=== PATIENT | male | born 1970 | race Caucasian/White ===

== ENCOUNTER → 2016-06-04 | Emergency (ER) | payer OTHER ==
[~2016-06-04] VITALS: Ht 182.9 cm; Wt 95.5 kg
[~2016-06-04] MED LIST: ACETAMINOPHEN 325 MG TAB PO ONE; BACTDS PO; CEPH500C PO; IBUP-1542 PO; KETOROLAC 30 MG INJ IV STA; VANCOMYCIN 1 GM (PMX) 250 ML IVPB SCH
[2016-06-04 19:44] VITALS: Ht 182.9 cm; Wt 95.5 kg
[2016-06-04 21:02] LABS: ADD SCAN DIFF NO
[2016-06-04 21:07] LABS: BASOPHILS % 0.6 % (0.0-2.0); EOSINOPHILS # 0.1 10^3/ul (0.0-0.5); HEMATOCRIT 37.9 % (42.0-52.0); HEMOGLOBIN 13.2 g/dl (14.0-18.0); LYMPHOCYTES # 1.6 10^3/ul (0.8-2.9); LYMPHOCYTES % 22.4 % (15.0-51.0); MEAN CORPUSCULAR HEMOGLOBIN 30.7 pg (29.0-33.0); MEAN CORPUSCULAR HGB CONC 34.8 g/dl (32.0-37.0); MEAN CORPUSCULAR VOLUME 88.1 fl (82.0-101.0); MEAN PLATELET VOLUME 9.8 fl (7.4-10.4); MONOCYTE # 0.4 10^3/ul (0.3-0.9); NEUTROPHIL # 4.7 10^3/ul (1.6-7.5); PLATELET COUNT 216 10^3/UL (140-415); RED CELL DISTRIBUTION WIDTH 11.7 % (11.5-14.5)
[2016-06-04 21:15] LABS: POTASSIUM 3.8 mmol/L (3.5-5.1)
[2016-06-04 21:16] LABS: CREATININE 0.96 mg/dl (0.61-1.24)
[2016-06-04 21:17] LABS: ALBUMIN/GLOBULIN RATIO 1.11; BILIRUBIN,INDIRECT 0.1 mg/dl (0-1.1); BILIRUBIN,TOTAL 0.1 mg/dl (0.2-1.3); CALCIUM 9.2 mg/dl (8.4-10.2); TOTAL PROTEIN 7.6 g/dl (6.1-8.1)
[2016-06-04 21:31] LABS: C-REACTIVE PROTEIN 5.9 mg/dl (0.0-0.9)
--- NOTE | 2016-06-04 22:07 | ERA ---
ER Documentation Chief Complaint Date/Time DATE: 06/04/16 TIME: 22:04 Chief Complaint left leg/knee pain/swelling x 4 days. denies injury (ROSS COATS MD) HPI This 2-year-old male complains of left knee redness for last 4 days. He does work on his knees. He may have had tactile fevers but no measured temperature. Denies vomiting, shortness breath chest pain, weakness or restricted range of motion. (ROSS COATS MD) ROS All systems reviewed and are negative except as per history of present illness. (ROSS COATS MD) Medications Home Meds Active Scripts Cephalexin* (Cephalexin*) 500 Mg Capsule, 500 MG PO Q6 for 10 Days, #40 CAP Prov:ROSS COATS MD 06/04/16 Sulfamethoxazole-Trimethoprim* (Bactrim* DS) 800-160 Mg Tab, 1 TAB PO BID for 10 Days, #20 TAB Prov:ROSS COATS MD 06/04/16 Ibuprofen* (Motrin*) 600 Mg Tab, 600 MG PO Q6, #30 TAB Prov:ROSS COATS MD 06/04/16 Allergies Allergies: Coded Allergies: No Known Drug Allergies (Verified Allergy, Unknown, 06/04/16) PMhx/Soc Medical and Surgical Hx: pt denies Medical Hx, pt denies Surgical Hx History of Surgery: No Anesthesia Reaction: No Hx Neurological Disorder: No Hx Respiratory Disorders: No Hx Cardiac Disorders: No Hx Psychiatric Problems: No Hx Miscellaneous Medical Probl: No Hx Alcohol Use: No Hx Substance Use: No Hx Tobacco Use: No Smoking Status: Never smoker (ROSS COATS MD) Physical Exam Vitals Vital Signs Date Time Temp Pulse Resp B/P Pulse Ox O2 Delivery O2 Flow Rate FiO2 06/04/16 19:44 97 20 139/67 97 (ADRI REMY NP) Physical Exam Const: [] Alert, [id number]. Head: Atraumatic Eyes: Normal Conjunctiva ENT: Normal External Ears, Nose and Mouth. Neck: Full range of motion..~ No meningismus. Resp: Clear to auscultation bilaterally Cardio: Regular rate and rhythm, no murmurs Abd: Soft, non tender, non distended. Normal bowel sounds Skin: No petechiae or rashes Back: No midline or flank tenderness Ext: No cyanosis, or edema. There is some tenderness and slight fluctuance in the left prepatellar bursa. There is some surrounding redness and warmth. There is no appreciable effusion or restricted range of motion deformities. There is no calf swelling or Homans sign. Neur: Awake and alert Psych: Normal Mood and Affect (ROSS COATS MD) Result Diagram: 06/04/16204906/04/162049 Results 24 hrs Laboratory Tests Test 06/04/16 20:50 Alanine Aminotransferase (ALT/SGPT) 71IU/L Albumin 4.0g/dl Albumin/Globulin Ratio 1.11 Alkaline Phosphatase 100IU/L Anion Gap 16 Aspartate Amino Transf (AST/SGOT) 57IU/L Basophils # 0.010^3/ul Basophils % 0.6% Blood Urea Nitrogen 13mg/dl C-Reactive Protein 5.9mg/dl Calcium Level 9.2mg/dl Carbon Dioxide Level 28mmol/L Chloride Level 102mmol/L Creatinine 0.96mg/dl Direct Bilirubin 0.00mg/dl Eosinophils # 0.110^3/ul Eosinophils % 2.0% Erythrocyte Sedimentation Rate 80mm/Hr Globulin 3.60g/dl Glucose Level 208mg/dl Hematocrit 37.9% Hemoglobin 13.2g/dl Indirect Bilirubin 0.1mg/dl Lipase 98U/L Lymphocytes # 1.610^3/ul Lymphocytes % 22.4% Mean Corpuscular Hemoglobin 30.7pg Mean Corpuscular Hemoglobin Concent 34.8g/dl Mean Corpuscular Volume 88.1fl Mean Platelet Volume 9.8fl Monocytes # 0.410^3/ul Monocytes % 6.0% Neutrophils # 4.710^3/ul Neutrophils % 68.0% Nucleated Red Blood Cells # 0.010^3/ul Nucleated Red Blood Cells % 0.0/100WBC Platelet Count 49675^3/UL Potassium Level 3.8mmol/L Red Blood Count 4.3010^6/ul Red Cell Distribution Width 11.7% Sodium Level 142mmol/L Total Bilirubin 0.1mg/dl Total Protein 7.6g/dl Uric Acid 5.6mg/dl White Blood Count 7.010^3/ul Current Medications Medications (Trade) Dose Ordered Sig/Kyaw Route PRN Reason Start Time Stop Time Status Last Admin Dose Admin Ketorolac Tromethamine 30 mg 30 mg ONCE STAT IV 06/04/16 20:20 06/04/16 20:23 DC 06/04/16 21:04 Vancomycin HCl (Vancocin) 250 ml @ 125 mls/hr ONCE IVPB 06/04/16 20:30 06/04/16 22:29 DC 06/04/16 21:04 Acetaminophen (Tylenol Tab) 650 mg ONCE ONCE PO 06/04/16 20:30 06/04/16 20:31 DC 06/04/16 21:04 Signed out to me by Dr Coats, ESR was elevated, as per his instructions, communicated this results to Dr. Venegas, my attending physician, he came and evaluated the patient, he recommends to do uric acid testing, this was tested, it was normal, he said to continue given vacations prescribed by Dr. Coats, 24- hour follow-up with primary care doctor or here in emergency department was recommended to ensure the patient is not developing worsening infection. Patient was discharged according to Dr. Coats's instructions, patient was advised to return sooner for any worsening symptoms. (ADRI REMY NP) Procedures/MDM Patient has signs and symptoms of left knee prepatellar bursitis and cellulitis. X-ray Knee 3V Interpreted by me: Bones: No fracture Joints: No dislocation Foreign body: None. Impression abnormal left knee x-ray CBC is normal and CMP is normal. CRP is 5. ESR is pending and signed out to nurse practitioner jm and supervising ER physician. Patient was given vancomycin 1 g IV and Toradol 30 mg IV. Assuming labs without evidence of septic arthritis osteomyelitis on serial exam and review of laboratory results. Patient will be treated with Bactrim and Keflex instructions for wound check in 2-3 days. There is no evidence of DVT, fracture , dislocation, neurologic deficit. (ROSS COATS MD) Departure Diagnosis: Primary Impression: Cellulitis Qualified Code: L03.116 - Cellulitis of left lower extremity Additional Impression: Knee pain Qualified Code: M25.562 - Acute pain of left knee Condition: Stable Patient Instructions: Cellulitis, Bursitis Additional Instructions: Recheck in 2-3 days for reevaluation. Return sooner for worsening redness, new or worsening symptoms ROSS COATS MD Jun 04, 2016 22:07 ADRI REMY NP Jun 05, 2016 01:06
--- NOTE | 2016-06-04 22:15 | RADRPT ---
PROCEDURE: Left knee x-ray CLINICAL INDICATION: Pain and swelling of the left knee. Reference marker directed towards the med ial left knee. TECHNIQUE: AP, lateral and oblique views of the left knee were obtained. COMPARISON: None FINDINGS: There is normal mineralization. No acute fracture or dislocation is seen. There are no significant degenerative changes. There is no joint effusion. Soft tissue swelling over the anterior tibial tuberosity, otherwise nonspecific. IMPRESSION: Soft tissue swelling over the anterior tibial tuberosity, and otherwise, no acute fracture in the le ft knee. RPTAT: [facility] Physician Catrachita Date Time Electronically viewed and signed by Physician Catrachita on 06/04/2016 22:15 RS/
[2016-06-05 01:15] VITALS: BP 136/88; PULSE 72; RESP 18; TEMP 98.3
== END | disposition home or self-care (01) ==
LOC: FTE 19:32
DX: L03.116 Cellulitis of left lower limb (principal)
CPT/HCPCS: 36415; 73562; 80053; 83690; 84560; 85025; 85651; 86140; 87040; 96374; 96375; 99284; J1885; J3370